=== PATIENT | female | born 1995 | race Two or more races ===

== ENCOUNTER 2016-12-08 18:48 | Emergency (ER) | payer OTHER ==
[~2016-12-08] VITALS: Ht 172.7 cm; Wt 74.8 kg
[~2016-12-08 18:48] MED LIST: AZITHROMYCIN250 MG ORAL
[2016-12-08] MEDS ORDERED: NKM (18:59)
--- NOTE | 2016-12-08 19:44 | Emergency Room Report ---
History of Present Illness General Chief Complaint: Earache Source: Patient Present Illness HPI 21-year-old female presents to emergency Department complaining of 10 out of 10 in severity right ear pain tenderness since this a.m. Patient states that this past week she had pressure in the inner ear and was evaluated by her PCP whom did not see any infection at that time. Patient denies fevers or chills patient reports taking Tylenol for pain with no relief. Patient denies use of Q -tips or digital trauma to the affected ear. She denies loss of hearing, ringing in the ears or discharge. Denies CP, Palpitations, LOC, AMS, dizziness , Changes in Vision, Sensation, paresthesias, or a sudden severe headache. Allergies: Coded Allergies: NO KNOWN ALLERGIES (Unverified Allergy, Unknown, 09/22/15) Patient History Past Medical History: see triage record Past Surgical History: none Pertinent Family History: none Last Menstrual Period: 12/04/2016 Now: No : 0 Para: 0 Immunizations: UTD Reviewed Nursing Documentation: PMH: Agreed, PSxH: Agreed Nursing Documentation-PMH Past Medical History: No Stated History Review of Systems All Other Systems: negative except mentioned in HPI Physical Exam Vital Signs Date Time Temp Pulse Resp B/P Pulse Ox O2 Delivery O2 Flow Rate FiO2 12/08/16 18:54 98.1 78 16 153/89 100 Room Air Sp02 EP Interpretation: reviewed, normal General Appearance: no apparent distress, alert, GCS 15, non-toxic Head: normocephalic, atraumatic Eyes: bilateral eye PERRL, bilateral eye normal inspection ENT: hearing grossly normal, normal pharynx, no angioedema, normal voice, uvula midline, moist mucus membranes, nasal congestion, other - Right ear Canal is erythematous and macerated in appearance with clear d/c noted, no TM involvement, no evidence of mastoidits or preauricular LAD on PE Neck: full range of motion, no meningismus, no bony tend, supple/symm/no masses Respiratory: chest non-tender, lungs clear, normal breath sounds, speaking full sentences Cardiovascular #1: regular rate, rhythm, no edema Musculoskeletal: back normal, gait/station normal, normal range of motion, non- tender Neurologic: alert, oriented x3, responsive, motor strength/tone normal, sensory intact, speech normal Psychiatric: judgement/insight normal, memory normal, mood/affect normal, no suicidal/homicidal ideation Skin: normal color, no rash, warm/dry, well hydrated Lymphatic: no adenopathy Medical Decision Making PA Attestation Dr. Pretty is my supervising Physician whom patient management has been discussed with. Diagnostic Impression: Primary Impression: Otitis externa, acute Qualified Codes: H60.501 - Unspecified acute noninfective otitis externa, right ear ER Course 21-year-old female presents to emergency Department complaining of 10 out of 10 in severity right ear pain tenderness since this a.m. Patient states that this past week she had pressure in the inner ear and was evaluated by her PCP whom did not see any infection at that time. Patient denies fevers or chills patient reports taking Tylenol for pain with no relief. Patient denies use of Q -tips or digital trauma to the affected ear. She denies loss of hearing, ringing in the ears or discharge. Ddx considered but are not limited to OM, OE, mastoiditis, TM perforation, FB Vital signs: are WNL, pt. is afebrile H&PE are most consistent with otitis externa ORDERS: none required at this time, the diagnosis is clinical -OTOSCOPY: Right ear Canal is erythematous and macerated in appearance with clear d/c noted, no TM involvement, no evidence of mastoidits or preauricular LAD on PE ED INTERVENTIONS: None required at this time. DISCHARGE: At this time pt. is stable for d/c to home. With Otic ABX. Will provide printed patient care instructions, and any necessary prescriptions. Care plan and follow up instructions have been discussed with the patient prior to discharge. Last Vital Signs Date Time Temp Pulse Resp B/P Pulse Ox O2 Delivery O2 Flow Rate FiO2 12/08/16 18:54 98.1 78 16 153/89 100 Room Air Disposition: HOME, SELF-CARE Condition: Stable Scripts Acetaminophen* (TYLENOL EXTRA STRENGTH*) 500 Mg Tablet 500 MG ORAL Q6H, #30 TAB 0 Refills Prov: Salyl Andrea.Perry 12/08/16 Ciprofloxacin Hcl/Dexameth (CIPRODEX OTIC SUSPENSION) 7.5 Ml Drops.susp 4 DROP RIGHT EAR TWICE A DAY for 7 Days, #7.5 ML Prov: Sally Andrea 12/08/16 Patient Instructions: Otitis Externa, [id number] Additional Instructions: Take medications as directed. Follow up with PCP in 3-5 days Return sooner to ED if new symptoms occur, or current symptoms become worse. * [employer] [place] with your studies Ashley! * - Please note that this Emergency Department Report was dictated using [employer] cager technology software, occasionally this can lead to erroneous entry secondary to interpretation by the dictation equipment. Sally Andrea Dec 08, 2016 19:43
[2016-12-08] MEDS ORDERED: CIPRODEX OTIC7.5 M1 RIGHT EAR (19:47)
[2016-12-08] MEDS ORDERED: TYLENOL EXTRA500 MG ORAL (19:47)
[2016-12-08 19:57] VITALS: BP 140/95
== END 2016-12-08 19:59 | disposition home or self-care (01) ==
LOC: EMR 19:11
DX: H60.501 Unspecified acute noninfective otitis externa, right ear (principal)
CPT/HCPCS: 99284